=== PATIENT | female | born 1985 | race Caucasian/White ===

== ENCOUNTER 2019-09-11 10:07 | Emergency (ER) | payer OTHER ==
[~2019-09-11] VITALS: Ht 167.6 cm; Wt 86.2 kg
[2019-09-11] MEDS ORDERED: SERTRALINE HCL100 MG PO (10:24)
[2019-09-11] MEDS ORDERED: ZYRTEC10 M5 PO (10:24)
[2019-09-11 12:09] VITALS: BP 138/84
== END 2019-09-11 12:09 | disposition home or self-care (01) ==
LOC: EDBD 10:07 → ER 10:07
DX: S68.624A Partial traumatic transphalangeal amputation of right ring finger, initial encounter (principal); Z79.899 Other long term (current) drug therapy; Z88.0 Allergy status to penicillin; W27.8XXA Contact with other nonpowered hand tool, initial encounter; Y93.89 Activity, other specified; Y92.89 Other specified places as the place of occurrence of the external cause; Y99.8 Other external cause status